=== PATIENT | female | born 1975 | race Two or more races ===

== ENCOUNTER 2017-07-03 14:32 | Emergency (ER) | payer MEDICAID, OTHER ==
[~2017-07-03] VITALS: Ht 167.6 cm; Wt 104.3 kg
[2017-07-03 15:31] LABS: Basophils # (auto) 0.1 uL; Eosinophils # (auto) 0.3 uL; Hemoglobin 12.3 g/dL (12.2-16.2); Lymphocytes # (auto) 2.9 uL; Mean Platelet Volume 7.6 fL (6.9-10.8); Monocytes # (auto) 0.8 uL
[2017-07-03 15:33] LABS: Basophils % (auto) 0.7 % (0.0-2.0); Eosinophils % (auto) 2.4 % (0.0-7.0); Hematocrit 38.6 % (36.0-46.0); Lymphocytes % (auto) 25.4 % (10.0-50.0); Mean Corpuscular Hgb Conc. 31.9 g/dL (32.0-36.0); Mean Corpuscular Volume 81.4 fL (80.0-100.0); Monocytes % (auto) 7.3 % (0.0-12.0); Neutrophils # (auto) 7.4 uL; Neutrophils % (auto) 64.2 % (37.0-80.0); Platelet Count (auto) 390 10^3/uL (140-450); Red Cell Distribution Width 15.9 % (11.8-14.3); White Blood Cell 11.5 10^3/uL (4.4-10.8)
[2017-07-03 15:51] LABS: Albumin 3.3 g/dL (3.4-5.0); Alkaline Phosphatase 111 U/L (45-117); Anion Gap 12 (5-15); Aspartate Aminotransferase 31 U/L (15-37); BUN/Creatinine Ratio 17.3; Bilirubin, Total 0.3 mg/dL (0.2-1.0); Blood Urea Nitrogen 13 mg/dL (7-18); Calcium 8.6 mg/dL (8.5-10.1); Carbon Dioxide 22 mmol/L (21-32); Chloride 101 mmol/L (98-107); GFR African American 108 mL/min; GFR Non-African American 90 mL/min; Glucose 96 mg/dL (74-106); Magnesium 1.9 mg/dL (1.6-2.6); Potassium 3.5 mmol/L (3.5-5.1); Sodium 135 mmol/L (136-145); Total Protein 8.1 g/dL (6.4-8.2)
[2017-07-03] MEDS ORDERED: LORazepam 0.5 MG TAB PO ONE (16:15)
[2017-07-03 19:30] VITALS: BP 142/88
[2017-07-03 19:59] LABS: Urine Bilirubin Negative (Negative); Urine Blood Negative /uL (Negative); Urine Color Colorless (Yellow); Urine Glucose Normal (Normal); Urine Ketone Negative (Negative); Urine Nitrite Negative (Negative); Urine RBC <1 /hpf (0 - 4); Urine Squamous Epithelial Cell FEW /hpf (<5); Urine Urobilinogen Normal (Negative)
== END 2017-07-03 21:53 | disposition home or self-care (01) ==
LOC: EDBD 14:32 → ER 14:32 → EDUNIT# 14:32 → ER 21:51
DX: R07.89 Other chest pain (principal); F41.9 Anxiety disorder, unspecified; I10 Essential (primary) hypertension; R42 Dizziness and giddiness
CPT/HCPCS: 36415; 70450; 71010; 80053; 81001; 83735; 84484; 85025; 93005; 94761